=== PATIENT | male | born 1955 | race Caucasian/White ===

== ENCOUNTER 2020-12-05 05:40 | Emergency (ER) | payer MEDICARE ==
[~2020-12-05] VITALS: Ht 170.2 cm; Wt 76.4 kg
[2020-12-05] MEDS ORDERED: METOPROLOL SUCC50 MG PO (05:58)
[2020-12-05] MEDS ORDERED: TAMSULOSIN0.4 MG PO (05:59)
[2020-12-05 07:14] VITALS: BP 152/86
== END 2020-12-05 07:17 | disposition home or self-care (01) ==
LOC: ED 05:40
DX: R04.0 Epistaxis (principal); I10 Essential (primary) hypertension

== ENCOUNTER 2021-11-11 20:58 | Emergency (ER) | payer MEDICARE ==
[~2021-11-11] VITALS: Ht 170.2 cm; Wt 76.0 kg
[~2021-11-11 20:58] MED LIST: METOPROLOL SUCC50 MG PO; TAMSULOSIN0.4 MG PO
[2021-11-11 21:27] LABS: HEMATOCRIT 54.6 % (39.0-50.0); HEMOGLOBIN 17.8 g/dl (14.0-18.0); IMMATURE GRANULOCYTES 0.2 % (0.0-5.0); MEAN CELL VOLUME 93.2 fL CALC (80.0-100.0); MEAN CORPUSCULAR HGB 30.4 pG CALC (26.0-32.0); MEAN CORPUSCULAR HGB CONC 32.6 g/dL CAL (32.0-36.0); NEUT# 11.02 thou/uL (1.82-7.42); RED BLOOD COUNT 5.86 mill/uL (4.70-6.10); RED CELL DISTRI WIDTH 12.9 % (11.5-15.5)
[2021-11-11 21:43] LABS: ALBUMIN 4.3 g/dL (3.2-5.0); ALKALINE PHOSPHATASE 91 u/l (38-126); AMYLASE 76 u/l (30-110); ANION GAP 14 (6-22 (CALC)); BUN 27 mg/dL (8-23); BUN/CREATININE RATIO 25 (12-20 (CALC)); CARBON DIOXIDE 25 mmol/l (22-30); CHLORIDE 103 mmol/l (95-108); CREATININE 1.1 mg/dL (0.7-1.3); GFR > 60 ML/MIN (>=60 (CALC)); GFR FOR AFR.AMER. > 60 ML/MIN (>=60 (CALC)); LIPASE 136 u/l (23-300); POTASSIUM 4.1 mmol/l (3.5-5.1); SGOT/AST 61 u/l (19-48); SODIUM 137 mmol/l (137-146); TOTAL PROTEIN 7.8 g/dL (6.3-8.2)
[2021-11-11 21:55] LABS: MYOGLOBIN 78 ng/mL (0 - 121)
[2021-11-12] MEDS ORDERED: GOLYTELY PO ×2 (00:08→15:53)
[2021-11-12 00:14] VITALS: BP 158/70
== END 2021-11-12 00:23 | disposition home or self-care (01) ==
LOC: ED 20:58
PROVIDERS: Family Medicine
DX: K59.00 Constipation, unspecified (principal); I10 Essential (primary) hypertension
CPT/HCPCS: Q9967; S0164

== ENCOUNTER 2021-11-12 17:01 | Inpatient (IN) | payer MEDICARE ==
[~2021-11-12] VITALS: Ht 170.2 cm; Wt 76.0 kg
[~2021-11-12 17:01] MED LIST changes: +GOLYTELY PO
[2021-11-12 17:33] LABS: HEMATOCRIT 52.4 % (39.0-50.0); HEMOGLOBIN 17.2 g/dl (14.0-18.0); IMMATURE GRANULOCYTES 0.3 % (0.0-5.0); MEAN CELL VOLUME 94.8 fL CALC (80.0-100.0); MEAN CORPUSCULAR HGB 31.1 pG CALC (26.0-32.0); MEAN CORPUSCULAR HGB CONC 32.8 g/dL CAL (32.0-36.0); NEUT# 15.15 thou/uL (1.82-7.42); RED BLOOD COUNT 5.53 mill/uL (4.70-6.10); RED CELL DISTRI WIDTH 13.1 % (11.5-15.5)
[2021-11-12 17:48] LABS: ALBUMIN 4.5 g/dL (3.2-5.0); ALKALINE PHOSPHATASE 70 u/l (38-126); AMYLASE 65 u/l (30-110); ANION GAP 15 (6-22 (CALC)); BUN 19 mg/dL (8-23); BUN/CREATININE RATIO 15 (12-20 (CALC)); CARBON DIOXIDE 24 mmol/l (22-30); CHLORIDE 103 mmol/l (95-108); CREATININE 1.3 mg/dL (0.7-1.3); GFR 55 ML/MIN (>=60 (CALC)); GFR FOR AFR.AMER. > 60 ML/MIN (>=60 (CALC)); LIPASE 57 u/l (23-300); POTASSIUM 4.5 mmol/l (3.5-5.1); SGOT/AST 56 u/l (19-48); SODIUM 137 mmol/l (137-146); TOTAL PROTEIN 8.4 g/dL (6.3-8.2)
[2021-11-12 17:59] LABS: ACT PARTIAL THROMBO TIME 29.1 SECONDS (20.0-32.5); INTERNATIONAL NORMALIZED RATIO 1.2 RATIO (0.7-1.3)
[2021-11-12 19:27] LABS: URINE BILIRUBIN - DIPSTICK NEGATIVE (NEGATIVE); URINE BLOOD DIPSTICK NEGATIVE (NEGATIVE); URINE COLOR YELLOW; URINE GLUCOSE - DIPSTICK NEGATIVE (NEGATIVE); URINE KETONE NEGATIVE (NEGATIVE); URINE LEUK ESTERASE NEGATIVE (NEGATIVE); URINE PH 7.5 (4.5-8.0); URINE PROTEIN - DIPSTICK NEGATIVE (NEG-TRACE); URINE UROBILINOGEN - DIPSTICK 0.2 E.U./dL (0.2)
[2021-11-12 19:55] LABS: URINE NITRITE - DIPSTICK NEGATIVE (Negative)
[2021-11-12 21:00] VITALS: BP 168/113
[2021-11-12 21:40] VITALS: BP 133/87
[2021-11-13] VITALS: BP 135/80
[2021-11-13 04:00] VITALS: BP 154/86
[2021-11-13 05:14] LABS: HEMATOCRIT 48.9 % (39.0-50.0); HEMOGLOBIN 15.5 g/dl (14.0-18.0); IMMATURE GRANULOCYTES 0.3 % (0.0-5.0); MEAN CELL VOLUME 96.8 fL CALC (80.0-100.0); MEAN CORPUSCULAR HGB 30.7 pG CALC (26.0-32.0); MEAN CORPUSCULAR HGB CONC 31.7 g/dL CAL (32.0-36.0); NEUT# 11.78 thou/uL (1.82-7.42); RED BLOOD COUNT 5.05 mill/uL (4.70-6.10); RED CELL DISTRI WIDTH 13.6 % (11.5-15.5)
[2021-11-13 07:10] LABS: ALKALINE PHOSPHATASE 65 u/l (38-126); ANION GAP 12 (6-22 (CALC)); BILIRUBIN, TOTAL 1.7 mg/dL (0.0-1.4); BUN 16 mg/dL (8-23); BUN/CREATININE RATIO 14 (12-20 (CALC)); CARBON DIOXIDE 23 mmol/l (22-30); CHLORIDE 110 mmol/l (95-108); CREATININE 1.2 mg/dL (0.7-1.3); GFR > 60 ML/MIN (>=60 (CALC)); GFR FOR AFR.AMER. > 60 ML/MIN (>=60 (CALC)); POTASSIUM 4.8 mmol/l (3.5-5.1); SGOT/AST 35 u/l (19-48); SODIUM 140 mmol/l (137-146)
[2021-11-13 07:14] LABS: ALBUMIN 3.5 g/dL (3.2-5.0); TOTAL PROTEIN 6.4 g/dL (6.3-8.2)
[2021-11-13 08:15] VITALS: BP 156/95
[2021-11-13 15:42] VITALS: BP 150/95
[2021-11-13 20:30] VITALS: BP 152/83
[2021-11-13 23:57] VITALS: BP 148/81
[2021-11-14 04:00] VITALS: BP 146/83
[2021-11-14 05:02] LABS: HEMATOCRIT 45.9 % (39.0-50.0); HEMOGLOBIN 14.7 g/dl (14.0-18.0); IMMATURE GRANULOCYTES 0.5 % (0.0-5.0); MEAN CELL VOLUME 96.8 fL CALC (80.0-100.0); NEUT# 9.49 thou/uL (1.82-7.42); RED BLOOD COUNT 4.74 mill/uL (4.70-6.10); RED CELL DISTRI WIDTH 13.3 % (11.5-15.5)
[2021-11-14 05:27] LABS: ALKALINE PHOSPHATASE 53 u/l (38-126); ANION GAP 10 (6-22 (CALC)); BILIRUBIN, TOTAL 1.6 mg/dL (0.0-1.4); BUN 15 mg/dL (8-23); BUN/CREATININE RATIO 13 (12-20 (CALC)); CARBON DIOXIDE 24 mmol/l (22-30); CHLORIDE 110 mmol/l (95-108); CREATININE 1.1 mg/dL (0.7-1.3); GFR > 60 ML/MIN (>=60 (CALC)); GFR FOR AFR.AMER. > 60 ML/MIN (>=60 (CALC)); POTASSIUM 4.5 mmol/l (3.5-5.1); SGOT/AST 26 u/l (19-48); SODIUM 140 mmol/l (137-146); TOTAL PROTEIN 5.8 g/dL (6.3-8.2)
[2021-11-14 08:00] VITALS: BP 159/87
[2021-11-14 16:32] VITALS: BP 159/87
[2021-11-14 17:10] VITALS: BP 143/100
[2021-11-14 18:53] VITALS: BP 166/98
[2021-11-15 04:00] VITALS: BP 150/90
[2021-11-15 06:04] LABS: HEMATOCRIT 45.6 % (39.0-50.0); HEMOGLOBIN 14.9 g/dl (14.0-18.0); MEAN CELL VOLUME 94.2 fL CALC (80.0-100.0); MEAN CORPUSCULAR HGB 30.8 pG CALC (26.0-32.0); MEAN CORPUSCULAR HGB CONC 32.7 g/dL CAL (32.0-36.0); RED BLOOD COUNT 4.84 mill/uL (4.70-6.10); RED CELL DISTRI WIDTH 12.8 % (11.5-15.5)
[2021-11-15 06:31] LABS: ANION GAP 13 (6-22 (CALC)); BUN 14 mg/dL (8-23); BUN/CREATININE RATIO 15 (12-20 (CALC)); CARBON DIOXIDE 21 mmol/l (22-30); CHLORIDE 109 mmol/l (95-108); CREATININE 0.9 mg/dL (0.7-1.3); GFR > 60 ML/MIN (>=60 (CALC)); GFR FOR AFR.AMER. > 60 ML/MIN (>=60 (CALC)); MAGNESIUM 2.1 mg/dL (1.6-2.3); POTASSIUM 4.3 mmol/l (3.5-5.1); SODIUM 139 mmol/l (137-146)
[2021-11-15 09:35] VITALS: BP 152/95
[2021-11-15 11:30] LABS: BILIRUBIN, TOTAL 1.2 mg/dL (0.0-1.4)
[2021-11-15 15:43] VITALS: BP 147/93
[2021-11-16 04:30] VITALS: BP 165/80
[2021-11-16 05:48] LABS: HEMATOCRIT 47.6 % (39.0-50.0); HEMOGLOBIN 15.6 g/dl (14.0-18.0); MEAN CELL VOLUME 93.3 fL CALC (80.0-100.0); MEAN CORPUSCULAR HGB 30.6 pG CALC (26.0-32.0); MEAN CORPUSCULAR HGB CONC 32.8 g/dL CAL (32.0-36.0); RED BLOOD COUNT 5.1 mill/uL (4.70-6.10); RED CELL DISTRI WIDTH 12.5 % (11.5-15.5)
[2021-11-16 06:07] LABS: ALBUMIN 2.9 g/dL (3.2-5.0); ALKALINE PHOSPHATASE 45 u/l (38-126); ANION GAP 10 (6-22 (CALC)); BILIRUBIN, TOTAL 0.8 mg/dL (0.0-1.4); BUN 11 mg/dL (8-23); BUN/CREATININE RATIO 12 (12-20 (CALC)); CARBON DIOXIDE 25 mmol/l (22-30); CHLORIDE 106 mmol/l (95-108); CREATININE 0.9 mg/dL (0.7-1.3); GFR > 60 ML/MIN (>=60 (CALC)); GFR FOR AFR.AMER. > 60 ML/MIN (>=60 (CALC)); MAGNESIUM 2.1 mg/dL (1.6-2.3); POTASSIUM 3.9 mmol/l (3.5-5.1); SGOT/AST 29 u/l (19-48); SODIUM 138 mmol/l (137-146); TOTAL PROTEIN 5.7 g/dL (6.3-8.2)
[2021-11-16 07:40] VITALS: BP 148/93
[2021-11-16 14:27] VITALS: BP 137/83
[2021-11-16 19:00] VITALS: BP 157/84
[2021-11-17 04:00] VITALS: BP 141/73
[2021-11-17 06:02] LABS: HEMATOCRIT 44.6 % (39.0-50.0); HEMOGLOBIN 14.7 g/dl (14.0-18.0); MEAN CELL VOLUME 92.1 fL CALC (80.0-100.0); MEAN CORPUSCULAR HGB 30.4 pG CALC (26.0-32.0); RED BLOOD COUNT 4.84 mill/uL (4.70-6.10); RED CELL DISTRI WIDTH 12.7 % (11.5-15.5)
[2021-11-17 06:23] LABS: ANION GAP 11 (6-22 (CALC)); BUN 9 mg/dL (8-23); BUN/CREATININE RATIO 11 (12-20 (CALC)); CARBON DIOXIDE 24 mmol/l (22-30); CHLORIDE 109 mmol/l (95-108); CREATININE 0.9 mg/dL (0.7-1.3); GFR > 60 ML/MIN (>=60 (CALC)); GFR FOR AFR.AMER. > 60 ML/MIN (>=60 (CALC)); POTASSIUM 3.7 mmol/l (3.5-5.1); SODIUM 140 mmol/l (137-146)
[2021-11-17 08:08] VITALS: BP 149/94
[2021-11-17 08:11] VITALS: BP 149/94
[2021-11-17] MEDS ORDERED: CIPROFLOXACN500 MG PO (09:58)
[2021-11-17] MEDS ORDERED: METRONIDAZOLE500 MG PO (09:59)
[2021-11-17] MEDS ORDERED: TRAMADOL HCL50 MG PO (10:00)
== END 2021-11-17 10:48 | disposition home or self-care (01) | DRG 392 ==
LOC: ED 17:01 → ED-I 20:13 → ED 20:23 → MS2 20:24
PROVIDERS: Nurse Practitioner; Surgery; ADMIT Internal Medicine; ATTEND Internal Medicine
PROC: 0T9B70Z Drainage of Bladder with Drainage Device, Via Natural or Artificial Opening (ICD-10-PCS; principal; 2021-11-13)
DX: K57.20 Diverticulitis of large intestine with perforation and abscess without bleeding (principal); I10 Essential (primary) hypertension; K59.00 Constipation, unspecified; F95.2 Tourette's disorder; F41.9 Anxiety disorder, unspecified; N40.1 Benign prostatic hyperplasia with lower urinary tract symptoms; R33.8 Other retention of urine; R35.0 Frequency of micturition; F17.200 Nicotine dependence, unspecified, uncomplicated; Z20.822 Contact with and (suspected) exposure to COVID-19; R10.9 Unspecified abdominal pain; R10.12 Left upper quadrant pain; R10.32 Left lower quadrant pain
CPT/HCPCS: J2060; Q9967; S0164

== ENCOUNTER 2021-12-11 10:10 | Day surgery (SDC) | payer MEDICARE, MEDICAID ==
[~2021-12-11 10:10] MED LIST changes: +B-12100 MCG PO; +CIPROFLOXACN500 MG PO; +CITRULLINE PO; +FOLATE400 MCG PO; +KP VITAMIN E100 UNIT PO; +METRONIDAZOLE500 MG PO; +MULTI VIT PO; +TRAMADOL HCL50 MG PO
[2021-12-11 13:56] VITALS: BP 142/94
== END 2021-12-11 14:20 | disposition home or self-care (01) ==
LOC: ORM 10:10
PROVIDERS: ATTEND Orthopaedic Surgery
PROC: 0KB50ZZ Excision of Right Shoulder Muscle, Open Approach (ICD-10-PCS; principal; 2021-12-11)
DX: M62.89 Other specified disorders of muscle (principal); I10 Essential (primary) hypertension; F17.210 Nicotine dependence, cigarettes, uncomplicated; M19.011 Primary osteoarthritis, right shoulder

== ENCOUNTER 2023-02-04 06:55 | Day surgery (SDC) | payer MEDICARE ==
[~2023-02-04] VITALS: Ht 170.2 cm; Wt 75.8 kg
[2023-02-04 09:56] VITALS: BP 148/94
== END 2023-02-04 09:37 | disposition home or self-care (01) ==
LOC: ENDO 06:55 → ORM 09:40
PROVIDERS: ATTEND Internal Medicine Gastroenterology
PROC: 0DBM8ZX Excision of Descending Colon, Via Natural or Artificial Opening Endoscopic, Diagnostic (ICD-10-PCS; principal; 2023-02-04)
PROC: 0DBP8ZX Excision of Rectum, Via Natural or Artificial Opening Endoscopic, Diagnostic (ICD-10-PCS; 2023-02-04)
DX: K62.89 Other specified diseases of anus and rectum (principal); D12.4 Benign neoplasm of descending colon; K62.1 Rectal polyp; K57.30 Diverticulosis of large intestine without perforation or abscess without bleeding; K64.8 Other hemorrhoids; Z92.241 Personal history of systemic steroid therapy

== ENCOUNTER 2024-05-25 10:29 | Emergency (ER) | payer MEDICARE ==
[~2024-05-25] VITALS: Ht 170.2 cm; Wt 74.0 kg
[2024-05-25] VITALS (9 sets, daily range): BP systolic 134–160; BP diastolic 91–112
[2024-05-25 11:13] LABS: BASO% 0.5 % (0-3); EOS% 2.2 % (0-8); IMMATURE GRANULOCYTES 0.3 % (0.0-5.0); LYMPH% 19.6 % (15-41); MEAN CELL VOLUME 90.5 fL CALC (80.0-100.0); MEAN CORPUSCULAR HGB 30.5 pG CALC (26.0-32.0); MEAN CORPUSCULAR HGB CONC 33.7 g/dL CAL (32.0-36.0); MONO% 9.1 % (2-13); NEUT# 2.54 thou/uL (1.82-7.42); NEUT% 68.3 % (42-76); RED BLOOD COUNT 5.25 mill/uL (4.70-6.10); RED CELL DISTRI WIDTH 11.8 % (11.5-15.5)
[2024-05-25 11:14] LABS: HEMATOCRIT 47.5 % (39.0-50.0)
[2024-05-25 11:29] LABS: ALBUMIN 4.1 g/dL (3.2-5.0); ALKALINE PHOSPHATASE 88 u/l (38-126); ANION GAP 6 (6-22 (CALC)); BILIRUBIN, TOTAL 0.7 mg/dL (0.2-1.3); BUN 12 mg/dL (8-23); BUN/CREATININE RATIO 15 (12-20 (CALC)); CARBON DIOXIDE 26 mmol/l (22-30); CHLORIDE 113 mmol/l (95-108); CREATININE 0.8 mg/dL (0.7-1.3); ESTIMATED GFR 96 ML/MIN (>=90 (CALC)); POTASSIUM 3.9 mmol/l (3.5-5.1); SGOT/AST 53 u/l (19-48); SODIUM 141 mmol/l (137-146); TOTAL PROTEIN 7.1 g/dL (6.3-8.2)
== END 2024-05-25 13:25 | disposition home or self-care (01) ==
LOC: ED 10:29
PROVIDERS: Family Medicine
DX: R42 Dizziness and giddiness (principal); I10 Essential (primary) hypertension